=== PATIENT | male | born 1990 | race Caucasian/White ===

== ENCOUNTER 2016-07-03 13:52 | Emergency (ER) | payer SELFPAY ==
[2016-07-03] MEDS ORDERED: IPRATROPIUM-ALBUTEROL 3 ML NEB INHALATION STA (14:00)
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
--- NOTE | 2016-07-03 14:17 | XR ---
EXAMINATION TYPE: XR chest 2V DATE OF EXAM: 07/03/2016 2:12 PM COMPARISON: NONE HISTORY: Dyspnea TECHNIQUE: Frontal and lateral views of the chest are obtained. FINDINGS: There is no focal air space opacity, pleural effusion, or pneumothorax seen. The cardiac silhouette size is within normal limits. There is a slight spinal curvature. The osseous structures are intact. IMPRESSION: No acute cardiopulmonary process.
[2016-07-03 14:27] VITALS: RESP 16
[2016-07-03 14:59] VITALS: BP 110/52; PULSE 72; TEMP 97.8
== END 2016-07-03 14:58 | disposition home or self-care (01) ==
LOC: EC 13:52
DX: J98.01 Acute bronchospasm (principal); S00.81XA Abrasion of other part of head, initial encounter; F17.200 Nicotine dependence, unspecified, uncomplicated; X58.XXXA Exposure to other specified factors, initial encounter
CPT/HCPCS: 71020; 94640; 99284